=== PATIENT | female | born 1990 | race Caucasian/White ===

== ENCOUNTER 2018-01-29 12:28 | Inpatient (IN) | payer MEDICAID ==
[2018-01-29] MEDS ORDERED: Terbutaline 1 MG/ML SDV SUBCUT PRN (14:18)
[2018-01-29] MEDS ORDERED: Carboprost Tromethamine 250 MCG/1 ML Amp IM PRN (14:18)
[2018-01-29] MEDS ORDERED: Tranexamic Acid 1,000 MG in Sodium Chloride 0.9% 100 ML IV PRN (14:18)
[2018-01-29] MEDS ORDERED: Misoprostol 200 MCG Tab PO PRN (14:18)
[2018-01-29] MEDS ORDERED: Sodium Chloride 0.9% 2.5 ML Syringe FLUSH PRN (14:18)
[2018-01-29] MEDS ORDERED: Methylergonovine 0.2 MG/1 ML Amp IM PRN ×2 (14:18→22:54)
[2018-01-29] MEDS ORDERED: Sodium Chloride 0.9% 10 ML Syringe FLUSH PRN (14:18)
[2018-01-29] MEDS ORDERED: Butorphanol 1 MG/ML SDV IVPUSH PRN (14:18)
[2018-01-29] MEDS ORDERED: Nalbuphine 10 MG/ML 10 ML MDV IVPUSH PRN (14:18)
[2018-01-29] MEDS ORDERED: Lidocaine 1% 50 ML MDV INJECT PRN (14:18)
[2018-01-29] MEDS ORDERED: Water For Irrigation,Sterile 1,000 ML Container IRR PRN (14:18)
[2018-01-29] MEDS ORDERED: Oxytocin/0.9 % Sodium Chloride 30 UNIT/500 ML BAG IV SCH ×2 (14:30)
[2018-01-29] MEDS: Lactated Ringers 1,000 ML IV SCH ×3 (14:45→20:30)
[2018-01-29] MEDS ORDERED: Ampicillin 2 GM in Sodium Chloride 0.9% 100 ML IV ONE (15:00)
[2018-01-29] MEDS ORDERED: Acetaminophen 500 MG Tab PO ONE (16:57)
[2018-01-29] MEDS ORDERED: Acetaminophen 500 MG Tab ONE (17:01)
[2018-01-29] MEDS ORDERED: Ampicillin 1 GM in Sodium Chloride 0.9% 50 ML IV SCH (19:00)
--- NOTE | 2018-01-29 20:05 | PCM.PREANE ---
Preanesthetic Assessment - Procedure Proposed Procedure: labor epidural; continuous - Anesthesia/Transfusion/Family Hx Anesthesia History: Prior Anesthesia Without Reaction Family History of Anesthesia Reaction: No Intubation History: Unknown Additional History: epidural for childbirth X 2 in past at [facility]. - Review of Systems General: Other (active labor) Pulmonary: No Symptoms Cardiovascular: No Symptoms Gastrointestinal: No Symptoms, Other (GERD) Neurological: No Symptoms - Physical Assessment NPO Status Date: 01/29/18 NPO Status Time: 09:00 Height: 5 ft 1 in Weight: 205 lb ASA Class: 2 Mental Status: Alert & Oriented x3 Airway Class: Mallampati = 1 Dentition: Reports: Normal Dentition Thyro-Mental Finger Breadths: 3 Mouth Opening Finger Breadths: 3 ROM/Head Extension: Limited/Partial Lungs: Clear to Auscultation, Normal Respiratory Effort Cardiovascular: Regular Rate, Regular Rhythm, No Murmurs - Lab Values: Laboratory Last Values WBC 9.68 K/uL (4.0-11.0) 01/29/18 14: RBC 4.22 M/uL (4.30-5.90) L 01/29/18 14:29 Hgb 12.1 g/dL (12.0-16.0) 01/29/18 14:29 Hct 36.2 % (36.0-46.0) 01/29/18 14: MCV 85.8 fL (80.0-98.0) 01/29/18 14:29 MCH 28.7 pg (27.0-32.0) 01/29/18 14: MCHC 33.4 g/dL (31.0-37.0) 01/29/18 14:29 RDW Std Deviation 44.3 fl (28.0-62.0) 01/29/18 14:29 RDW Coeff of Dayana 14 % (11.0-15.0) 01/29/18 14: Plt Count 212 K/uL (150-400) 01/29/18 14: MPV 11.40 fL (7.40-12.00) 01/29/18 14:29 Nucleated RBC % 0.0 /100WBC 01/29/18 14:29 Nucleated RBCs # 0 K/uL 01/29/18 14:29 Blood Type A POSITIVE 01/29/18 14:29 Antibody Screen NEGATIVE 01/29/18 14:29 - Allergies Allergies/Adverse Reactions: Allergies Allergy/AdvReac Type Severity Reaction Status Date / Time No Known Allergies Allergy Verified 01/29/18 14:15 - Blood Blood Available: No Product(s) Available: None - Anesthesia Plan Pre-Op Medication Ordered: Other (she had stadol earlier) - Acknowledgements Anesthesia Type Planned: Epidural Pt an Appropriate Candidate for the Planned Anesthesia: Yes Alternatives and Risks of Anesthesia Discussed w Pt/Guardian: Yes Pt/Guardian Understands and Agrees with Anesthesia Plan: Yes PreAnesthesia Questionnaire HEENT History: Reports: Other (See Below) Other HEENT History: mouth VAMP PRESSER History: Reports: Ectopic - Past Surgical History HEENT Surgical History: Reports: Oral Surgery - SUBSTANCE USE Smoking Status *Q: Current Every Day Smoker Second Hand Smoke Exposure: No Recreational Drug Use History: No - HOME MEDS Home Medications: Home Meds Acetaminophen [Tylenol Extra Strength] 1,000 mg PO ASDIRECTED PRN 01/29/18 [ History] PNV95/Ferrous Fumarate/FA [ Tablet] 1 tab PO DAILY 01/29/18 [History] - CURRENT (IN HOUSE) MEDS Current Meds: Current Medications Butorphanol Tartrate (Stadol) 1 mg IVPUSH Q1H PRN PRN Reason: Pain Last Admin: 01/29/18 19:04 Dose: 1 mg Carboprost Tromethamine (Hemabate Ds) 250 mcg IM ASDIRECTED PRN PRN Reason: Post Hemorrhage Ampicillin Sodium 1 gm/ Sodium (Chloride) 50 mls @ 100 mls/hr IV Q4H CHERYLE Last Admin: 01/29/18 18:47 Dose: 100 mls/hr Lactated Ringer's (Ringers, Lactated) 1,000 mls @ 150 mls/hr IV ASDIRECTED CHERYLE Last Admin: 01/29/18 19:49 Dose: 999 mls/hr Oxytocin/Sodium Chloride (Oxytocin 30 Unit/500 Ml-Ns) 30 unit in 500 mls @ 999 mls/hr IV TITRATE CHERYLE Oxytocin/Sodium Chloride (Oxytocin 30 Unit/500 Ml-Ns) 30 unit in 500 mls @ 2 mls/hr IV TITRATE CHERYLE; Protocol Last Titration: 01/29/18 19:50 Dose: 16 munits/min, 16 mls/hr Tranexamic Acid 1,000 mg/ (Sodium Chloride) 110 mls @ 660 mls/hr IV ONETIME PRN PRN Reason: Bleeding Lidocaine HCl (Xylocaine 1%) 50 ml INJECT .ONCE PRN PRN Reason: Laceration repair Methylergonovine Maleate (Methergine) 0.2 mg IM ASDIRECTED PRN PRN Reason: Post Hemorrhage Misoprostol (Cytotec) 200 mcg PO .ONCE PRN PRN Reason: Post Hemorrhage Nalbuphine HCl (Nubain) 10 mg IVPUSH Q1H PRN PRN Reason: Pain (severe 7-10) Sodium Chloride (Saline Flush) 10 ml FLUSH ASDIRECTED PRN PRN Reason: Keep Vein Open Sodium Chloride (Saline Flush) 2.5 ml FLUSH ASDIRECTED PRN PRN Reason: Keep Vein Open Sterile Water (Sterile Water For Irrigation) 1,000 ml IRR ASDIRECTED PRN PRN Reason: delivery Terbutaline Sulfate (Brethine) 0.25 mg SUBCUT ASDIRECTED PRN PRN Reason: Tacysystole Discontinued Medications Acetaminophen (Tylenol Extra Strength) 1,000 mg PO ONETIME ONE Stop: 01/29/18 16:58 Last Admin: 01/29/18 17:04 Dose: 1,000 mg Acetaminophen (Tylenol Extra Strength) Confirm Administered Dose 1,000 mg .ROUTE .STK-MED ONE Stop: 01/29/18 17:02 Ampicillin Sodium 2 gm/ Sodium (Chloride) 100 mls @ 200 mls/hr IV ONETIME ONE Stop: 01/29/18 15:29 Last Admin: 01/29/18 14:55 Dose: 200 mls/hr
[2018-01-29] MEDS ORDERED: fentaNYL 100 MCG/2 ML SDV ONE (20:38)
[2018-01-29] MEDS ORDERED: oxyCODONE 5 MG Tab PO PRN (22:54)
[2018-01-29] MEDS ORDERED: Ibuprofen 800 MG Tab PO PRN (22:54)
[2018-01-29] MEDS ORDERED: Benzocaine/Menthol 20%-0.5% Spray 78 GM Cannister TOP PRN (22:54)
[2018-01-29] MEDS ORDERED: Bisacodyl 10 MG Supp RECTAL PRN (22:54)
[2018-01-29] MEDS ORDERED: Docusate Sodium 100 MG Cap PO PRN (22:54)
[2018-01-29] MEDS ORDERED: Witch Hazel Medicated Pads 40/Jar TOP PRN (22:54)
[2018-01-29] MEDS ORDERED: Lanolin 100% Cream 7 GM Tube TOP PRN (22:54)
--- NOTE | 2018-01-30 01:20 | PCM48HPAN ---
Post Anesthesia Note - EVALUATION WITHIN 48HRS OF ANESTHETIC Vital Signs in Normal Range: Yes Patient Participated in Evaluation: Yes Respiratory Function Stable: Yes Airway Patent: Yes Cardiovascular Function Stable: Yes Hydration Status Stable: Yes Pain Control Satisfactory: Yes Nausea and Vomiting Control Satisfactory: Yes Mental Status Recovered: Yes - COMMENTS/OBSERVATIONS Free Text/Narrative:: epidural cath was removed by RN intact
--- NOTE | 2018-01-30 03:01 | OR ---
SURGEON: Giovanna Vasquez M.D. DATE OF PROCEDURE: 01/29/2018 PREOPERATIVE DIAGNOSES: 1. A 38-3/7 weeks' intrauterine . 2. Oligohydramnios. 3. Poor maternal weight gain. 4. Group B streptococcus positive. POSTOPERATIVE DIAGNOSES: 1. A 38-3/7 weeks' intrauterine . 2. Oligohydramnios. 3. Poor maternal weight gain. 4. Group B streptococcus positive. PROCEDURES PERFORMED: Pitocin induction of labor and term spontaneous vaginal delivery. ANESTHESIA: Epidural. ESTIMATED BLOOD LOSS: Less than 300 mL. FINDINGS: Liveborn male, scores of 8 and 9, weighing 2640 g. Placenta; spontaneous, Schultze, intact with 3 vessels. Perineum intact. COMPLICATIONS: None known. DISPOSITION: Mother and baby are in LDRP in good condition. BRIEF HISTORY: This is a 27-year-old female. She is G4, P2-0-1-2. She presented to the clinic at 38-2/7 weeks' gestation with decreased movement and low fundal height. Biophysical profile was performed revealing oligohydramnios. She otherwise did get an 8/10 on her biophysical profile. Therefore, she returned the following day for induction of labor. She received 2 doses of ampicillin and Pitocin. At this point, she was 4 cm dilated and 80% effaced. Artificial rupture of membranes was performed. Clear fluid was noted. She had received an epidural for pain control. Over the next 1-1/2 hours, she progressed to complete. DESCRIPTION OF PROCEDURE: With the patient in dorsal lithotomy position, the patient pushed over 2 contractions to a 5+ station, at which time the head was delivered spontaneously and atraumatically over the perineum with support with subsequent delivery of the infant's shoulders and body without any difficulty. The infant was bulb suctioned by nose and mouth. The cord was clamped x2 and cut after it had ceased to pulsate, and the infant was handed to the mother in the presence of the nurse attending delivery. The infant was a liveborn male, scores 8 and 9, weighing 2640 g. Cord blood was collected for cord ABGs as well as routine cord blood sampling. Pitocin was initiated after delivery of the to assist with delivery of the placenta, which was delivered spontaneously, Schultze, intact with 3 vessels. Upon inspection of the pelvis and perineum, there were no periurethral, vaginal sidewall, cervical, rectal, or perineal lacerations. EBL was less than 300 mL. There were no known complications. Mother and baby are in LDRP in good condition. KILO COTA /[id number]
--- NOTE | 2018-01-30 07:34 | PCM.PNPP ---
- General Info Date of Service: 01/30/18 Functional Status: Reports: Pain Controlled, Tolerating Diet, Ambulating, Urinating - Review of Systems General: Reports: No Symptoms HEENT: Reports: No Symptoms Pulmonary: Reports: No Symptoms Cardiovascular: Reports: No Symptoms Gastrointestinal: Reports: No Symptoms Genitourinary: Reports: No Symptoms Musculoskeletal: Reports: No Symptoms Skin: Reports: No Symptoms Neurological: Reports: No Symptoms Psychiatric: Reports: No Symptoms - Patient Data Vital Signs - Most Recent: Last Vital Signs Temp 36.8 C 01/30/18 04:00 Pulse 61 01/30/18 04:00 Resp 16 01/30/18 04:00 BP 106/57 L 01/30/18 04:00 Pulse Ox 96 01/30/18 04:00 Weight - Most Recent: 92.986 kg Lab Results - Last 24 Hours: Laboratory Results - last 24 hr 01/29/18 01/29/18 01/29/18 Range/Units 14:29 14:29 22:39 WBC 9.68 (4.0-11.0) K/uL RBC 4.22 L (4.30-5.90) M/uL Hgb 12.1 (12.0-16.0) g/dL Hct 36.2 (36.0-46.0) % MCV 85.8 (80.0-98.0) fL MCH 28.7 (27.0-32.0) pg MCHC 33.4 (31.0-37.0) g/dL RDW Std Deviation 44.3 (28.0-62.0) fl RDW Coeff of Dayana 14 (11.0-15.0) % Plt Count 212 (150-400) K/uL MPV 11.40 (7.40-12.00) fL Nucleated RBC % 0.0 /100WBC Nucleated RBCs # 0 K/uL Cord ABG pH 7.227 (7.18-7.38) Cord ABG Base Excess -5 (-10--2) Cord VBG pH 7.349 (7.25-7.45) Cord VBG Base Excess -4 (-10--2) Blood Type A POSITIVE Antibody Screen NEGATIVE 01/30/18 Range/Units 05:38 WBC (4.0-11.0) K/uL RBC (4.30-5.90) M/uL Hgb 10.5 L (12.0-16.0) g/dL Hct 32.2 L (36.0-46.0) % MCV (80.0-98.0) fL MCH (27.0-32.0) pg MCHC (31.0-37.0) g/dL RDW Std Deviation (28.0-62.0) fl RDW Coeff of Dayana (11.0-15.0) % Plt Count (150-400) K/uL MPV (7.40-12.00) fL Nucleated RBC % /100WBC Nucleated RBCs # K/uL Cord ABG pH (7.18-7.38) Cord ABG Base Excess (-10--2) Cord VBG pH (7.25-7.45) Cord VBG Base Excess (-10--2) Blood Type Antibody Screen Med Orders - Current: Current Medications Acetaminophen (Tylenol Extra Strength) 1,000 mg PO Q4H PRN PRN Reason: Pain Benzocaine/Menthol (Dermoplast Pain Relief 20%-0.5% Elim) 78 gm TOP ASDIRECTED PRN PRN Reason: Perineal Comfort Measure Bisacodyl (Dulcolax) 10 mg RECTAL .ONCE PRN PRN Reason: Constipation Docusate Sodium (Colace) 100 mg PO BID PRN PRN Reason: Constipation Emollient Ointment (Lansinoh Hpa) 0 gm TOP ASDIRECTED PRN PRN Reason: Sore Nipples Ibuprofen (Motrin) 800 mg PO Q6H PRN PRN Reason: Pain Methylergonovine Maleate (Methergine) 0.2 mg IM .ONCE PRN PRN Reason: Excessive Vaginal Bleeding Oxycodone HCl (Oxycodone) 5 mg PO Q2H PRN PRN Reason: Pain Prenat Multivit/Irrigator Overhead/Iron/Folic Ac ( Mtr) [address] DAILY [address] (Tucks) 1 pad TOP ASDIRECTED PRN PRN Reason: comfort care Discontinued Medications Acetaminophen (Tylenol Extra Strength) 1,000 mg PO ONETIME ONE Stop: 01/29/18 16:58 Last Admin: 01/29/18 17:04 Dose: 1,000 mg Acetaminophen (Tylenol Extra Strength) Confirm Administered Dose 1,000 mg .ROUTE .STK-MED ONE Stop: 01/29/18 17:02 Butorphanol Tartrate (Stadol) 1 mg IVPUSH Q1H PRN PRN Reason: Pain Last Admin: 01/29/18 19:04 Dose: 1 mg Carboprost Tromethamine (Hemabate Ds) 250 mcg IM ASDIRECTED PRN PRN Reason: Post Hemorrhage Fentanyl (Sublimaze) Confirm Administered Dose 100 mcg .ROUTE .STK-MED ONE Stop: 01/29/18 20:39 Ampicillin Sodium 2 gm/ Sodium (Chloride) 100 mls @ 200 mls/hr IV ONETIME ONE Stop: 01/29/18 15:29 Last Admin: 01/29/18 14:55 Dose: 200 mls/hr Ampicillin Sodium 1 gm/ Sodium (Chloride) 50 mls @ 100 mls/hr IV Q4H CHERYLE Last Admin: 01/29/18 18:47 Dose: 100 mls/hr Lactated Ringer's (Ringers, Lactated) 1,000 mls @ 150 mls/hr IV ASDIRECTED CHERYLE Last Infusion: 01/29/18 20:52 Dose: 150 mls/hr Oxytocin/Sodium Chloride (Oxytocin 30 Unit/500 Ml-Ns) 30 unit in 500 mls @ 999 mls/hr IV TITRATE CHERYLE Oxytocin/Sodium Chloride (Oxytocin 30 Unit/500 Ml-Ns) 30 unit in 500 mls @ 2 mls/hr IV TITRATE CHERYLE; Protocol Last Titration: 01/29/18 20:49 Dose: 18 munits/min, 18 mls/hr Tranexamic Acid 1,000 mg/ (Sodium Chloride) 110 mls @ 660 mls/hr IV ONETIME PRN PRN Reason: Bleeding Fentanyl/Bupivacaine HCl (Eqkyomvd-Oocvh-Rp 2 Mcg/Ml-0.125%) Confirm Administered Dose 100 mls @ as directed EP .STK-MED ONE Stop: 01/29/18 20:40 Lidocaine HCl (Xylocaine 1%) 50 ml INJECT .ONCE PRN PRN Reason: Laceration repair Last Admin: 01/29/18 20:31 Dose: 50 ml Methylergonovine Maleate (Methergine) 0.2 mg IM ASDIRECTED PRN PRN Reason: Post Hemorrhage Misoprostol (Cytotec) 200 mcg PO .ONCE PRN PRN Reason: Post Hemorrhage Nalbuphine HCl (Nubain) 10 mg IVPUSH Q1H PRN PRN Reason: Pain (severe 7-10) Sodium Chloride (Saline Flush) 10 ml FLUSH ASDIRECTED PRN PRN Reason: Keep Vein Open Sodium Chloride (Saline Flush) 2.5 ml FLUSH ASDIRECTED PRN PRN Reason: Keep Vein Open Sterile Water (Sterile Water For Irrigation) 1,000 ml IRR ASDIRECTED PRN PRN Reason: delivery Last Admin: 01/29/18 22:03 Dose: 1,000 ml Terbutaline Sulfate (Brethine) 0.25 mg SUBCUT ASDIRECTED PRN PRN Reason: Tacysystole - Infant Interaction Disposition, : [place] in Room with Family Interaction: Holding Support Person: Mother - Exam General: Alert, Oriented HEENT: Pupils Equal Neck: Supple Lungs: Normal Respiratory Effort GI/Abdominal Exam: Normal Bowel Sounds, No Mass Extremities: Normal Inspection, Non-Tender, No Pedal Edema Skin: Warm, Dry, Intact Neurological: No New Focal Deficit Psy/Mental Status: Alert, Normal Affect, Normal Mood - Problem List & Annotations (1) Vaginal delivery SNOMED Code(s): 752854122 Code(s): O80 - ENCOUNTER FOR FULL-TERM UNCOMPLICATED DELIVERY Status: Acute Current Visit: Yes (2) Group B streptococcal carriage complicating SNOMED Code(s): 706786870413574 Code(s): O99.820 - STREPTOCOCCUS B CARRIER STATE COMPLICATING Status: Acute Current Visit: Yes - Problem List Review Problem List Initiated/Reviewed/Updated: Yes - My Orders Last 24 Hours: My Active Orders 01/29/18 14:18 Bedrest Bathroom Privileges [RC] ASDIRECTED Communication Order [RC] ASDIRECTED Communication Order [RC] ASDIRECTED Heart Tones [RC] CONTINUOUS Non Stress Test [RC] PER UNIT ROUTINE May Shower [RC] ASDIRECTED Notify Provider [RC] PRN Notify Provider [RC] PRN Oxygen Therapy [RC] ASDIRECTED Up ad Liv [RC] ASDIRECTED Vaginal Exam [RC] PRN Vital Signs [RC] PER UNIT ROUTINE Vital Signs [RC] PER UNIT ROUTINE 01/29/18 22:54 Patient Status [ADT] Routine May Shower [RC] ASDIRECTED Up ad Liv [RC] ASDIRECTED Vital Signs [RC] PER UNIT ROUTINE Acetaminophen [Tylenol Extra Strength] 1,000 mg PO Q4H PRN Benzocaine/Menthol [Dermoplast Pain Relief 20%-0.5% Elim] 78 gm TOP ASDIRECTED PRN Bisacodyl [Dulcolax] 10 mg RECTAL .ONCE PRN Docusate Sodium [Colace] 100 mg PO BID PRN Ibuprofen [Motrin] 800 mg PO Q6H PRN Lanolin [Lansinoh HPA] See Dose Instructions TOP ASDIRECTED PRN Methylergonovine [Methergine] 0.2 mg IM .ONCE PRN Witch Ariana [Tucks] 1 pad TOP ASDIRECTED PRN oxyCODONE 5 mg PO Q2H PRN Assess Lochia [WOMSER] Per Unit Routine Assess Uterine Involution [WOMSER] Per Unit Routine Perineal Care [OM.PC] Per Unit Routine Peripheral IV Discontinue [OM.PC] Routine Resuscitation Status Routine 01/30/18 09:00 Vit/FA/Fe Fumarate/Se [ MTR] 1 each PO DAILY 01/30/18 Breakfast Regular Diet [DIET] - Assessment Assessment:: PPD#1 after induction for SGA. Minimal lochia, tolerating regular diet, ambulating without difficulty. Continue care
[2018-01-30] MEDS: Prenatal Multivitamin and Multimineral with Iron Tab PO SCH (08:03)
[2018-01-30] MEDS: Acetaminophen 500 MG Tab PO PRN ×2 (08:03→15:20)
[2018-01-31] MEDS: Prenatal Multivitamin and Multimineral with Iron Tab PO SCH (08:30)
[2018-01-31] MEDS: Acetaminophen 500 MG Tab PO PRN (08:30)
--- NOTE | 2018-01-31 09:42 | PCM.PNPP ---
- General Info Date of Service: 01/31/18 Functional Status: Reports: Pain Controlled, Tolerating Diet, Ambulating, Urinating - Review of Systems General: Reports: No Symptoms HEENT: Reports: No Symptoms Pulmonary: Reports: No Symptoms Cardiovascular: Reports: No Symptoms Gastrointestinal: Reports: No Symptoms Genitourinary: Reports: No Symptoms Musculoskeletal: Reports: No Symptoms Skin: Reports: No Symptoms Neurological: Reports: No Symptoms Psychiatric: Reports: No Symptoms - Patient Data Vital Signs - Most Recent: Last Vital Signs Temp 36.8 C 01/31/18 08:35 Pulse 65 01/31/18 08:35 Resp 16 01/31/18 08:35 BP 143/82 H 01/31/18 08:35 Pulse Ox 98 01/31/18 08:35 Weight - Most Recent: 92.986 kg Med Orders - Current: Current Medications Acetaminophen (Tylenol Extra Strength) 1,000 mg PO Q4H PRN PRN Reason: Pain Last Admin: 01/31/18 08:30 Dose: 1,000 mg Benzocaine/Menthol (Dermoplast Pain Relief 20%-0.5% [place]) 78 gm TOP ASDIRECTED PRN PRN Reason: Perineal Comfort Measure Bisacodyl (Dulcolax) 10 mg RECTAL .ONCE PRN PRN Reason: Constipation Docusate Sodium (Colace) 100 mg PO BID PRN PRN Reason: Constipation Emollient Ointment (Lansinoh Hpa) 0 gm TOP ASDIRECTED PRN PRN Reason: Sore Nipples Ibuprofen (Motrin) 800 mg PO Q6H PRN PRN Reason: Pain Last Admin: 01/30/18 20:53 Dose: 800 mg Methylergonovine Maleate (Methergine) 0.2 mg IM .ONCE PRN PRN Reason: Excessive Vaginal Bleeding Oxycodone HCl (Oxycodone) 5 mg PO Q2H PRN PRN Reason: Pain Prenat Multivit/Franquez/Iron/Folic Ac ( Mtr) 1 each PO DAILY CHERYLE Last Admin: 01/31/18 08:30 Dose: 1 each Witch Ariana (Tucks) 1 pad TOP ASDIRECTED PRN PRN Reason: comfort care Discontinued Medications Acetaminophen (Tylenol Extra Strength) 1,000 mg PO ONETIME ONE Stop: 01/29/18 16:58 Last Admin: 01/29/18 17:04 Dose: 1,000 mg Acetaminophen (Tylenol Extra Strength) Confirm Administered Dose 1,000 mg .ROUTE .STK-MED ONE Stop: 01/29/18 17:02 Last Admin: 01/30/18 07:58 Dose: Not Given Butorphanol Tartrate (Stadol) 1 mg IVPUSH Q1H PRN PRN Reason: Pain Last Admin: 01/29/18 19:04 Dose: 1 mg Carboprost Tromethamine (Hemabate Ds) 250 mcg IM ASDIRECTED PRN PRN Reason: Post Hemorrhage Fentanyl (Sublimaze) Confirm Administered Dose 100 mcg .ROUTE .STK-MED ONE Stop: 01/29/18 20:39 Last Admin: 01/30/18 07:59 Dose: Not Given Ampicillin Sodium 2 gm/ Sodium (Chloride) 100 mls @ 200 mls/hr IV ONETIME ONE Stop: 01/29/18 15:29 Last Admin: 01/29/18 14:55 Dose: 200 mls/hr Ampicillin Sodium 1 gm/ Sodium (Chloride) 50 mls @ 100 mls/hr IV Q4H CHERYLE Last Admin: 01/29/18 18:47 Dose: 100 mls/hr Lactated Ringer's (Ringers, Lactated) 1,000 mls @ 150 mls/hr IV ASDIRECTED CHERYLE Last Infusion: 01/29/18 20:52 Dose: 150 mls/hr Oxytocin/Sodium Chloride (Oxytocin 30 Unit/500 Ml-Ns) 30 unit in 500 mls @ 999 mls/hr IV TITRATE CHERYLE Oxytocin/Sodium Chloride (Oxytocin 30 Unit/500 Ml-Ns) 30 unit in 500 mls @ 2 mls/hr IV TITRATE CHERYLE; Protocol Last Titration: 01/29/18 20:49 Dose: 18 munits/min, 18 mls/hr Tranexamic Acid 1,000 mg/ (Sodium Chloride) 110 mls @ 660 mls/hr IV ONETIME PRN PRN Reason: Bleeding Fentanyl/Bupivacaine HCl (Otkkdgoa-Rkkod-Uw 2 Mcg/Ml-0.125%) Confirm Administered Dose 100 mls @ as directed EP .STK-MED ONE Stop: 01/29/18 20:40 Last Admin: 01/30/18 07:59 Dose: Not Given Lidocaine HCl (Xylocaine 1%) 50 ml INJECT .ONCE PRN PRN Reason: Laceration repair Last Admin: 01/29/18 20:31 Dose: 50 ml Methylergonovine Maleate (Methergine) 0.2 mg IM ASDIRECTED PRN PRN Reason: Post Hemorrhage Misoprostol (Cytotec) 200 mcg PO .ONCE PRN PRN Reason: Post Hemorrhage Nalbuphine HCl (Nubain) 10 mg IVPUSH Q1H PRN PRN Reason: Pain (severe 7-10) Sodium Chloride (Saline Flush) 10 ml FLUSH ASDIRECTED PRN PRN Reason: Keep Vein Open Sodium Chloride (Saline Flush) 2.5 ml FLUSH ASDIRECTED PRN PRN Reason: Keep Vein Open Sterile Water (Sterile Water For Irrigation) 1,000 ml IRR ASDIRECTED PRN PRN Reason: delivery Last Admin: 01/29/18 22:03 Dose: 1,000 ml Terbutaline Sulfate (Brethine) 0.25 mg SUBCUT ASDIRECTED PRN PRN Reason: Tacysystole - Interaction Infant Disposition, : in Room with Family Infant Interaction: Holding Infant Infant Feeding: Bottle Fed Infant Support Person: Mother - Recovery Exam Fundal Tone: Firm Fundal Level: 1 Fingerbreadths Below Umbilicus Fundal Placement: Midline Lochia Amount: Scant Lochia Color: Rubra/Red Perineum Description: Intact, Minimal Bruising/Swelling Episiotomy/Laceration: None Bladder Status: Voiding Urinary Elimination: Voided - Exam General: Alert, Oriented HEENT: Pupils Equal Neck: Supple Lungs: Normal Respiratory Effort GI/Abdominal Exam: Soft, Non-Tender, No Organomegaly Extremities: Normal Inspection, Non-Tender. No: No Pedal Edema (1+) Skin: Warm, Dry, Intact Neurological: No New Focal Deficit Psy/Mental Status: Alert, Normal Affect, Normal Mood - Problem List & Annotations (1) Vaginal delivery SNOMED Code(s): 684945546 Code(s): O80 - ENCOUNTER FOR FULL-TERM UNCOMPLICATED DELIVERY Status: Acute Current Visit: Yes (2) Group B streptococcal carriage complicating SNOMED Code(s): 688329983274893 Code(s): O99.820 - STREPTOCOCCUS B CARRIER STATE COMPLICATING Status: Acute Current Visit: Yes - Problem List Review Problem List Initiated/Reviewed/Updated: Yes - My Orders Last 24 Hours: My Active Orders 01/30/18 09:00 Vit/FA/Fe Fumarate/Se [ MTR] 1 each PO DAILY - Assessment Assessment:: PPD#2 after induction for SGA. Minimal lochia, tolerating regular diet, ambulating without difficulty. Dismiss to home today - Plan Plan:: Discharge precautions reviewed, follow up in 6 weeks.
== END 2018-01-31 12:00 | disposition home or self-care (01) | DRG 775 ==
LOC: MW.OBCHECK 12:28 → MW.OB 16:35 → OBSVTOIN 22:39
PROVIDERS: ADMIT Obstetrics & Gynecology; ATTEND Obstetrics & Gynecology
PROC: 10E0XZZ Delivery of Products of Conception, External Approach (ICD-10-PCS; principal; 2018-01-29)
PROC: 3E033VJ Introduction of Other Hormone into Peripheral Vein, Percutaneous Approach (ICD-10-PCS; 2018-01-29)
DX: O41.03X0 Oligohydramnios, third trimester, not applicable or unspecified (principal); O99.824 Streptococcus B carrier state complicating childbirth; O26.13 Low weight gain in pregnancy, third trimester; Z3A.38 38 weeks gestation of pregnancy; Z37.0 Single live birth
CPT/HCPCS: 36415; 51702; 51703; 59025; 59409; 82803; 85014; 85018; 85027; 86850; 86900; 86901; A9270-GY; J0290; J0595; J2590; J7030; J7050; J7120